=== PATIENT | female | born 1970 | race Hispanic/Latino ===

== ENCOUNTER → 2019-02-15 | Outpatient (CLI) | payer OTHER | END | disposition home or self-care (01) | LOC: RAH 14:44 | PROVIDERS: ATTEND Obstetrics & Gynecology | DX: Z13.6 Encounter for screening for cardiovascular disorders (principal) | CPT/HCPCS: 75571 ==

== ENCOUNTER → 2025-05-27 | Outpatient (CLI) | payer OTHER ==
--- NOTE | 2025-05-28 17:26 | HMCIMG ---
EXAM: CT Cardiac Calcium Scoring CLINICAL HISTORY: Screening. TECHNIQUE: Thin collimated axial CT cardiac images were obtained. The scan was performed according to ALARA (As Low As Reasonably Achievable) principles. CONTRAST: None. COMPARISON: None provided. FINDINGS: Vessel Lesions Volume (mm???) Equiv. Mass (mg)* Score LM 3 124.7 ??? 147.6 LAD 4 73.5 ??? 103.4 LCX 0 0.0 ??? 0.0 RCA 1 2.6 ??? 2.9 Ca 0 0.0 ??? 0.0 Total 8 200.8 ??? 254.0 (Score Type: Agatston equivalent, Threshold: 130 HU. The dataset does not contain a mass calibration factor; it is not possible to calculate the Equiv. Mass.) IMPRESSION: Total Agatston calcium score is 254.0, corresponding to approximately the 80th percentile for the reference group per [facility] data. This indicates moderate coronary artery calcification and an increased risk of coronary artery disease compared to peers of the same age and sex. /[place]
== END | disposition home or self-care (01) ==
LOC: RAH 15:22
PROVIDERS: ATTEND Family Medicine
DX: Z13.6 Encounter for screening for cardiovascular disorders (principal); I25.10 Atherosclerotic heart disease of native coronary artery without angina pectoris
CPT/HCPCS: 75571